=== PATIENT | female | born 1985 | race Caucasian/White ===

== ENCOUNTER → 2018-03-11 | Outpatient (REF) | payer OTHER, MEDICAID ==
[2018-03-11 19:58] LABS: ALBUMIN/GLOBULIN RATIO 0.88 (1.00-1.93); ALKALINE PHOSPHATASE 46 U/L (45-117); ALT/SGPT 21 U/L (12-78); ANION GAP 10 MEQ/L (8-16); AST/SGOT 15 U/L (7-37); BILIRUBIN,TOTAL 0.3 MG/DL (0.2-1.0); BLOOD UREA NITROGEN 7 MG/DL (7-18); CALCIUM LEVEL 8.4 MG/DL (8.5-10.1); CARBON DIOXIDE LEVEL 22 MEQ/L (21-32); CHLORIDE LEVEL 109 MEQ/L (98-107); CREATININE FOR GFR 0.56 MG/DL (0.55-1.30); FREE T4 0.94 NG/DL (0.76-1.46); GLOMERULAR FILTRATION RATE > 60.0 (>60); GLUCOSE, FASTING 84 MG/DL (70-100); POTASSIUM SERUM 3.5 MEQ/L (3.5-5.1); SODIUM LEVEL 141 MEQ/L (136-145); THYROID STIMULATING HORMONE 0.935 uIU/ML (0.358-3.740); TOTAL PROTEIN 6.4 GM/DL (6.4-8.2)
[2018-03-11 19:59] LABS: ESTIMATED AVERAGE GLUCOSE 97 MG/DL (60-110); FOLLICLE STIMULATING HORMONE < 0.3 mIU/mL; LUTEINIZING HORMONE < 0.1 mIU/mL
[2018-03-11 20:28] LABS: PROGESTERONE 58.3 NG/ML
[2018-03-11 22:04] LABS: CHLAMYDIA DNA AMPLIFICATION NEGATIVE (NEGATIVE); GC DNA AMPLIFICATION NEGATIVE (NEGATIVE)
[2018-03-12 11:27] LABS: HCG, SERUM QUANTITATIVE 38774 MIU/ML
[2018-03-12 15:09] LABS: HIV 1&2 SCREEN CENTAUR NEGATIVE (NEGATIVE)
[2018-03-15 15:40] LABS: ESTROGENS TOTAL 6418 pg/mL (.)
== END ==
LOC: M LAB REF 18:39
DX: Z11.3 Encounter for screening for infections with a predominantly sexual mode of transmission (principal); N91.5 Oligomenorrhea, unspecified
CPT/HCPCS: 83001

== ENCOUNTER → 2018-03-25 | Outpatient (CLI) | payer OTHER ==
[2018-03-25 10:12] LABS: BASO % 0.1 % (0.0-1.0); EOS # 0.3 10^3/uL (0.0-0.50); EOS % 3.9 % (0.0-3.0); HEMATOCRIT 34.3 % (36.0-47.0); HEMOGLOBIN 11.7 g/dl (12.0-15.5); IMMATURE GRANULOCYTE % 0.9 % (0-3.0); LYMPH # 1.4 10^3/uL (1.5-4.5); LYMPH % 17.9 % (24.0-44.0); MEAN CORPUSCULAR HEMOGLOBIN 31.3 pg (27.0-33.0); MEAN CORPUSCULAR HGB CONC 34.1 g/dl (32.0-36.5); MEAN CORPUSCULAR VOLUME 91.7 fl (80.0-96.0); MONO # 0.4 10^3/uL (0.0-0.8); MONO % 5.2 % (0.0-5.0); NEUTROPHILS # 5.7 10^3/uL (1.8-7.7); PLATELET COUNT, AUTOMATED 213 10^3/uL (150-450); RED BLOOD COUNT 3.74 10^6/uL (4.00-5.40); RED CELL DISTRIBUTION WIDTH 12.7 % (11.5-14.5); WHITE BLOOD COUNT 7.9 10^3/uL (4.0-10.0)
[2018-03-25 16:24] LABS: CHLAMYDIA DNA AMPLIFICATION NEGATIVE (NEGATIVE); GC DNA AMPLIFICATION NEGATIVE (NEGATIVE)
[2018-03-26 11:48] LABS: RUBELLA IgG QUALITATIVE IMMUNE (IMMUNE)
[2018-03-26 12:17] LABS: HBsAg Prenatal NEGATIVE (NEGATIVE)
[2018-03-26 12:17] LABS: HEPATITIS C VIRUS ABY INDEX < 0.0 INDEX (<0.8)
[2018-03-26 12:18] LABS: HIV 1&2 SCREEN CENTAUR NEGATIVE (NEGATIVE)
== END ==
LOC: M SMT 08:22
DX: Z34.82 Encounter for supervision of other normal pregnancy, second trimester (principal); Z3A.21 21 weeks gestation of pregnancy
CPT/HCPCS: 86762

== ENCOUNTER → 2018-03-25 | Outpatient (CLI) | payer OTHER | LOC: M RAD 13:08 | DX: Z34.82 Encounter for supervision of other normal pregnancy, second trimester (principal); Z36.89 Encounter for other specified antenatal screening; Z3A.21 21 weeks gestation of pregnancy | CPT/HCPCS: 76811 ==

== ENCOUNTER → 2018-05-19 | Outpatient (CLI) | payer OTHER ==
[2018-05-19 14:01] LABS: BASO % 0.1 % (0.0-1.0); EOS # 0.3 10^3/uL (0.0-0.50); EOS % 4.6 % (0.0-3.0); HEMATOCRIT 35.2 % (36.0-47.0); HEMOGLOBIN 11.7 g/dl (12.0-15.5); IMMATURE GRANULOCYTE % 0.9 % (0-3.0); LYMPH # 1.5 10^3/uL (1.5-4.5); MEAN CORPUSCULAR HEMOGLOBIN 31.2 pg (27.0-33.0); MEAN CORPUSCULAR HGB CONC 33.2 g/dl (32.0-36.5); MEAN CORPUSCULAR VOLUME 93.9 fl (80.0-96.0); MONO # 0.5 10^3/uL (0.0-0.8); MONO % 6.9 % (0.0-5.0); NEUTROPHILS % 67.5 % (36.0-66.0); PLATELET COUNT, AUTOMATED 205 10^3/uL (150-450); RED BLOOD COUNT 3.75 10^6/uL (4.00-5.40); RED CELL DISTRIBUTION WIDTH 13.2 % (11.5-14.5); WHITE BLOOD COUNT 7.4 10^3/uL (4.0-10.0)
[2018-05-19 15:17] LABS: GLUCOSE CHALLENGE TEST 1 HOUR 99 MG/DL (LESS THAN 140)
== END ==
LOC: M SMT 09:36
DX: Z34.83 Encounter for supervision of other normal pregnancy, third trimester (principal)
CPT/HCPCS: 82950

== ENCOUNTER → 2018-07-06 | Outpatient (REF) | payer OTHER | LOC: M LAB REF 13:11 | DX: Z34.83 Encounter for supervision of other normal pregnancy, third trimester (principal); Z3A.00 Weeks of gestation of pregnancy not specified | CPT/HCPCS: 87081 ==

== ENCOUNTER 2018-08-02 23:14 | Inpatient (IN) | payer OTHER ==
[2018-08-02] MEDS: LR 1,000 ML IV (23:48)
[2018-08-03] MEDS ORDERED: OXYTOCIN DRIP 30 UNITS in APPROPRIATE DILUENT 1 EA IV
[2018-08-03] MEDS: LR 1,000 ML IV ×2 (00:07→09:58)
[2018-08-03 00:16] LABS: HEMATOCRIT 38.9 % (36.0-47.0); HEMOGLOBIN 13.3 g/dl (12.0-15.5); MEAN CORPUSCULAR HEMOGLOBIN 30.8 pg (27.0-33.0); MEAN CORPUSCULAR HGB CONC 34.2 g/dl (32.0-36.5); PLATELET COUNT, AUTOMATED 193 10^3/uL (150-450); RED BLOOD COUNT 4.32 10^6/uL (4.00-5.40)
[2018-08-03] MEDS ORDERED: FENTANYL 2MCG/ML ROPIVACAINE 0.2% IN 0.9% NACL 200ML IVBAG As Ordered (04:46)
[2018-08-03] MEDS ORDERED: LACTATED RINGER'S 1000 ML IV (05:00)
[2018-08-03] MEDS ORDERED: EPIDURAL COMMENT XX (05:00)
[2018-08-03] MEDS ORDERED: ePHEDrine SULFATE 25 MG/5 ML(5MG/ML) SYRINGE IV (05:00)
[2018-08-03] MEDS ORDERED: REFRIGERATOR IV KEYS XX (05:00)
[2018-08-03] MEDS ORDERED: NALOXONE INJ 0.4 MG/1 ML VIAL (J2310) IV (05:00)
[2018-08-03] MEDS ORDERED: ONDANSETRON 4MG/2ML VIAL (J2405) IV ×2 (05:00→14:30)
[2018-08-03] MEDS ORDERED: EPIDURAL/PCA KEYS XX (05:00)
[2018-08-03] MEDS: PRENATAL VITAMINS CHEWABLE TABLET PO (09:00)
[2018-08-03] MEDS: FENTANYL/ROPIVACAINE/NACL BAG 200 ML EPIDURAL (09:19)
[2018-08-03] MEDS: diphenhydrAMINE INJ 50MG/ML VIAL (J1200) IV (10:49)
[2018-08-03 14:18] LABS: CORD GAS ABE A -10.3; CORD GAS HCO3 A 22.1 MEQ/L; CORD GAS O2 SAT A 98.5 %; CORD GAS PCO2 A 76.7 mmHg; CORD GAS PH A 7.077 UNITS; CORD GAS PO2 A 106.5 mmHg; CORD GAS SBC A 16.7 MEQ/L; CORD GAS TCO2 A 24.4 MEQ/L
[2018-08-03] MEDS ORDERED: RHOGAM 300 MCG (1500 IU) INJ (J2790) IM (14:30)
[2018-08-03] MEDS ORDERED: METHYLERGONOVINE MALEATE 0.2 MG TAB PO (14:30)
[2018-08-03] MEDS ORDERED: MEASLES,MUMPS,RUBELLA VACCINE INJ (MMR-II) (90707) SC (14:30)
[2018-08-03 14:37] LABS: CORD GAS HCO3 V 20.9 MEQ/L; CORD GAS O2 SAT V 69.3 %; CORD GAS PCO2 V 50.2 mmHg; CORD GAS PH V 7.237 UNITS; CORD GAS PO2 V 32.6 mmHg; CORD GAS SBC V 18.2 MEQ/L; CORD GAS TCO2 V 22.4 MEQ/L
[2018-08-03] MEDS: IBUPROFEN 800 MG TAB PO (16:42)
[2018-08-03] MEDS: OXYTOCIN INJ 10 UNITS/ML VIAL (J2590) IV (18:20)
[2018-08-03] MEDS: OXYTOCIN DRIP 30 UNITS in APPROPRIATE DILUENT 1 EA IV (18:28)
[2018-08-03] MEDS: METHYLERGONOVINE MALEATE 0.2 MG/ML VIAL (J2210) IM (18:29)
[2018-08-03 18:33] LABS: HEMATOCRIT 31.9 % (36.0-47.0); MEAN CORPUSCULAR HEMOGLOBIN 30.5 pg (27.0-33.0); MEAN CORPUSCULAR HGB CONC 34.2 g/dl (32.0-36.5); MEAN CORPUSCULAR VOLUME 89.4 fl (80.0-96.0); PLATELET COUNT, AUTOMATED 124 10^3/uL (150-450); RED BLOOD COUNT 3.57 10^6/uL (4.00-5.40); WHITE BLOOD COUNT 10.9 10^3/uL (4.0-10.0)
[2018-08-03 18:44] LABS: HEMOGLOBIN 10.9 g/dl (12.0-15.5)
[2018-08-03] MEDS: METHYLERGONOVINE MALEATE 0.2 MG TAB PO (22:15)
[2018-08-04] MEDS: ACETAMINOPHEN 500 MG TAB PO ×3 (00:05→18:19)
[2018-08-04] MEDS: DIBUCAINE 1% OINTMENT 30GM TOP (00:06)
[2018-08-04] MEDS: METHYLERGONOVINE MALEATE 0.2 MG TAB PO ×3 (04:34→15:34)
[2018-08-04] MEDS: DOCUSATE SODIUM 100 MG CAP PO ×2 (05:07→17:33)
[2018-08-04] MEDS: IBUPROFEN 800 MG TAB PO ×3 (05:07→22:11)
[2018-08-04 07:09] LABS: HEMATOCRIT 28.8 % (36.0-47.0); HEMOGLOBIN 9.8 g/dl (12.0-15.5); MEAN CORPUSCULAR HEMOGLOBIN 30.4 pg (27.0-33.0); MEAN CORPUSCULAR VOLUME 89.4 fl (80.0-96.0); PLATELET COUNT, AUTOMATED 126 10^3/uL (150-450); RED BLOOD COUNT 3.22 10^6/uL (4.00-5.40); WHITE BLOOD COUNT 10.1 10^3/uL (4.0-10.0)
[2018-08-04] MEDS: PRENATAL VITAMINS CHEWABLE TABLET PO (09:57)
[2018-08-04] MEDS ORDERED: METHYLERGONOVINE MALEATE 0.2 MG TAB PO (22:00)
[2018-08-05] MEDS: ACETAMINOPHEN 500 MG TAB PO (05:34)
[2018-08-05] MEDS: IBUPROFEN 800 MG TAB PO (09:22)
[2018-08-05] MEDS: PRENATAL VITAMINS CHEWABLE TABLET PO (09:22)
[2018-08-05] MEDS: DOCUSATE SODIUM 100 MG CAP PO (09:22)
== END 2018-08-05 09:38 | disposition home or self-care (01) | DRG 560 ==
LOC: M LDO 23:14 → M LDI 23:47 → M OBS 08-03 16:11
PROVIDERS: Specialist
PROC: 10D07Z3 Extraction of Products of Conception, Low Forceps, Via Natural or Artificial Opening (ICD-10-PCS; principal; 2018-08-03)
PROC: 0HQ9XZZ Repair Perineum Skin, External Approach (ICD-10-PCS; 2018-08-03)
DX: O48.0 Post-term pregnancy (principal); O72.1 Other immediate postpartum hemorrhage; O64.0XX0 Obstructed labor due to incomplete rotation of fetal head, not applicable or unspecified; Z37.0 Single live birth; Z3A.40 40 weeks gestation of pregnancy; O76 Abnormality in fetal heart rate and rhythm complicating labor and delivery; O70.0 First degree perineal laceration during delivery

== ENCOUNTER → 2019-01-10 | Outpatient (CLI) | payer OTHER ==
[~2019-01-10] MED LIST: IBUP-1114 PO; MAPA500T2 PO; PRENTAB9 PO; ZOLO25TA PO
--- NOTE | 2019-01-10 09:25 | REP ---
Clinical: Pelvic and perineal pain . Technique: Transabdominal pelvic ultrasound followed by transvaginal examination for better evaluation of the endometrium and adnexa with color Doppler evaluation of the ovaries. Findings: Bladder is unremarkable and measures 3.7 x 3.4 x 6.8 cm . Normal anteverted uterus measures 7.6 x 3.6 x 5.2 cm . The endometrial complex measures 4.7 mm thickness. No discrete uterine or endometrial abnormalities are appreciated. Right ovary is not visualized on either transabdominal or transvaginal images. Left ovary is normal in appearance and vascularity measuring 2.3 x 1.9 x 1.9 cm; RI 0.66. No pelvic fluid or adnexal mass lesion Impression: 1. Right ovary not visualized. 2. Normal uterus and left ovary. Electronically Signed by Marcos Lamb MD 01/10/2019 09:16 A
== END ==
LOC: M RAD 08:11
PROVIDERS: ATTEND Advanced Practice Midwife
DX: R10.2 Pelvic and perineal pain (principal)

== ENCOUNTER → 2019-02-14 | Outpatient (REF) | payer OTHER ==
[2019-02-14 15:12] LABS: CHLAMYDIA DNA AMPLIFICATION NEGATIVE (NEGATIVE); GC DNA AMPLIFICATION NEGATIVE (NEGATIVE)
[2019-02-16 14:09] LABS: HPV HYBRID CAPTURE II Negative (Negative)
== END ==
LOC: M LAB REF 13:00
PROVIDERS: ATTEND Advanced Practice Midwife
DX: R10.2 Pelvic and perineal pain (principal)

== ENCOUNTER → 2019-03-04 | Outpatient (CLI) | payer OTHER ==
[2019-03-04 13:31] LABS: AMORPHOUS SEDIMENT SMALL (NEGATIVE); APPEARANCE, URINE CLOUDY (CLEAR); BACTERIA, URINE AUTO 1+ (NEGATIVE); BILIRUBIN, URINE AUTO NEGATIVE (NEGATIVE); BLOOD, URINE BLOOD 2+ (NEGATIVE); COLOR, URINE YELLOW (YELLOW); GLUCOSE, URINE (UA) AUTO NEGATIVE (NEGATIVE); KETONE, URINE AUTO NEGATIVE (NEGATIVE); LEUKOCYTE ESTERASE, URINE AUTO 3+ (NEGATIVE); NITRITE, URINE AUTO NEGATIVE (NEGATIVE); PROTEIN, URINE AUTO 2+ mg/dL (NEGATIVE); RBC, URINE AUTO 104 /HPF (0-3); SPECIFIC GRAVITY URINE AUTO 1.013 (1.002-1.035); SQUAMOUS EPITHELIAL CELL UR AU 0 /HPF (0-6); UROBILINOGEN, URINE AUTO 0.2 mg/dL (0.0-2.0); WBC, URINE AUTO TNTC /HPF (0-3)
[2019-03-04 13:32] LABS: BASO % 0.1 % (0.0-1.0); EOS # 0.6 10^3/uL (0.0-0.50); EOS % 8.1 % (0.0-3.0); HEMATOCRIT 42.9 % (36.0-47.0); HEMOGLOBIN 14.5 g/dl (12.0-15.5); LYMPH # 1.8 10^3/uL (1.5-4.5); LYMPH % 23.1 % (24.0-44.0); MEAN CORPUSCULAR HEMOGLOBIN 30.9 pg (27.0-33.0); MEAN CORPUSCULAR HGB CONC 33.8 g/dl (32.0-36.5); MEAN CORPUSCULAR VOLUME 91.5 fl (80.0-96.0); MONO # 0.4 10^3/uL (0.0-0.8); MONO % 5.2 % (0.0-5.0); NEUTROPHILS # 4.8 10^3/uL (1.8-7.7); NEUTROPHILS % 63.2 % (36.0-66.0); PLATELET COUNT, AUTOMATED 256 10^3/uL (150-450); RED BLOOD COUNT 4.69 10^6/uL (4.00-5.40); WHITE BLOOD COUNT 7.7 10^3/uL (4.0-10.0)
[2019-03-04 13:38] LABS: ALBUMIN 3.6 GM/DL (3.2-5.2); ALT/SGPT 17 U/L (12-78); BILIRUBIN,TOTAL 0.3 MG/DL (0.2-1.0); BLOOD UREA NITROGEN 10 MG/DL (7-18); CARBON DIOXIDE LEVEL 27 MEQ/L (21-32); CHLORIDE LEVEL 110 MEQ/L (98-107); CREATININE FOR GFR 0.92 MG/DL (0.55-1.30); GLOMERULAR FILTRATION RATE > 60.0 (>60); GLUCOSE, FASTING 83 MG/DL (70-100); POTASSIUM SERUM 4.2 MEQ/L (3.5-5.1); SODIUM LEVEL 142 MEQ/L (136-145); TOTAL PROTEIN 7.3 GM/DL (6.4-8.2)
== END ==
LOC: M SMT 09:30
PROVIDERS: ATTEND Physician Assistant
DX: R10.9 Unspecified abdominal pain (principal)

== ENCOUNTER → 2019-03-09 | Outpatient (REF) | payer OTHER | LOC: M LAB REF 17:04 | PROVIDERS: ATTEND Physician Assistant | DX: R39.0 Extravasation of urine (principal) ==

== ENCOUNTER → 2020-07-13 | Outpatient (CLI) | payer OTHER ==
--- NOTE | 2020-07-13 09:24 | REP ---
INDICATION: R10.2 PELVIC PAIN. COMPARISON: 01/10/2019. TECHNIQUE: Transabdominal and transvaginal scanning were performed. FINDINGS: Uterine dimensions are normal at 8.6 x 3.8 x 4.6 cm. Endometrial echo is 7 mm thick and centrally placed. No free fluid is seen in the cul-de-sac. The bladder measures 2.4 x 6.8 x 3.5 cm. A linear echogenic focus in the posterior lower uterine segment measuring 7 mm in length is unchanged since the prior exam and is felt to be of no clinical significance. It may represent a thin linear calcification. The right ovary has been surgically removed reportedly. The left ovary dimensions are normal as well at 4.1 x 3.1 x 3.0 cm. It's Doppler flow was normal with resistive index of 0.59. There is a simple anechoic cyst of the left ovary measuring 3.3 x 2.7 x 2.9 cm. IMPRESSION: Small simple cyst left ovary 3.3 cm. Reportedly the right ovary has been removed. No left ovarian torsion. No free fluid. <Electronically signed by Mauro Alfonso > 07/13/20 [id number]
== END ==
LOC: M WHC 06:31
PROVIDERS: ATTEND Advanced Practice Midwife
DX: R10.2 Pelvic and perineal pain (principal)

== ENCOUNTER → 2020-10-11 | Outpatient (CLI) | payer OTHER ==
[~2020-10-11] MED LIST changes: +CETI-24 PO; +LILL1TAB PO
== END ==
LOC: M LABSMTC 14:12
PROVIDERS: ATTEND Pediatrics
DX: Z20.822 Contact with and (suspected) exposure to COVID-19 (principal)
CPT/HCPCS: C9803; U0003

== ENCOUNTER → 2021-07-05 | Outpatient (CLI) | payer OTHER ==
--- NOTE | 2021-07-05 09:26 | REP ---
INDICATION: VIABILITY. COMPARISON: None. FINDINGS: 4, Para 3 LMP 04/11/2021 VLADIMIR(LMP) = 01/16/2022 Today's sono findings, mean gestational sac size of 40 mm = 9 weeks 5 days; pole 7 mm = 6 weeks 5 days. Number: 1 there is no movement demonstrated. Heart Rate: There are no heart tones. The gestational sac appears irregular and partially detached from the uterus. IMPRESSION: irregular gestational sac, absence of movement and heart tones, consistent with failure. Findings were relayed to the referring office by the generation technologist. <Electronically signed by Morgan Catalan > 07/05/21 [id number]
== END ==
LOC: M WHC 08:11
PROVIDERS: ATTEND Obstetrics & Gynecology
DX: O36.8 Maternal care for other specified fetal problems (principal); Z3A.00 Weeks of gestation of pregnancy not specified

== ENCOUNTER → 2021-07-17 | Outpatient (CLI) | payer OTHER ==
--- NOTE | 2021-07-17 13:08 | REP ---
INDICATION: DETERMINE VIABILITY OF . COMPARISON: None. TECHNIQUE: Transvesical and transvaginal imaging FINDINGS: The uterus measures 15.4 x 5.9 x 7.9 cm. Within the uterus there is an irregular septated anechoic structure which measures 7.3 x 4 x 5.3 cm. Within this large anechoic structure there is a an echogenic focus potentially representing a pole. Doppler of this shows no cardiac activity. The patient is status post right oophorectomy Left ovary measures 2.7 x 1.9 x 1.8 cm and is within normal limits. IMPRESSION: Abnormal cystic structure seen within the uterus and not representing a normal gestational sac. No definite pole is identified. Exact etiology uncertain. Close follow-up is recommended. <Electronically signed by Shorty Vinson > 07/17/21 [id number]
== END ==
LOC: M WHC 10:04
PROVIDERS: ATTEND Obstetrics & Gynecology
DX: O36.80X0 Pregnancy with inconclusive fetal viability, not applicable or unspecified (principal); Z90.721 Acquired absence of ovaries, unilateral

== ENCOUNTER 2021-07-25 13:35 | Day surgery (SDC) | payer OTHER ==
[~2021-07-25] VITALS: Ht 165.1 cm; Wt 111.6 kg
[2021-07-25] MEDS ORDERED: MISO200T56 (13:54)
[2021-07-25] MEDS ORDERED: KETOROLAC 30 MG/ML 1ML VIAL IV ONE (21:55)
[2021-07-25 23:14] LABS: BASO % 0.4 % (0.0-1.0); EOS # 0.4 10^3/uL (0.0-0.5); EOS % 4.8 % (0.0-3.0); HEMATOCRIT 44.9 % (36.0-47.0); HEMOGLOBIN 14.1 g/dl (12.0-15.5); LYMPH # 2.4 10^3/uL (1.5-5.0); LYMPH % 30.6 % (24.0-44.0); MEAN CORPUSCULAR HEMOGLOBIN 30.2 pg (27.0-33.0); MEAN CORPUSCULAR HGB CONC 31.4 g/dl (32.0-36.5); MEAN CORPUSCULAR VOLUME 96.1 fl (80.0-96.0); MONO # 0.6 10^3/uL (0.0-0.8); MONO % 7.7 % (2.0-8.0); NEUTROPHILS # 4.3 10^3/uL (1.5-8.5); NEUTROPHILS % 56.2 % (36.0-66.0); PLATELET COUNT, AUTOMATED 190 10^3/uL (150-450); RED BLOOD COUNT 4.67 10^6/uL (4.00-5.40); WHITE BLOOD COUNT 7.7 10^3/uL (4.0-10.0)
[2021-07-25] MEDS ORDERED: ONDA4TAB6 PO (23:34)
[2021-07-25] MEDS ORDERED: CETI-24 PO (23:34)
[2021-07-25] MEDS ORDERED: PROAAER10 INH (23:34)
[2021-07-25] MEDS ORDERED: FLON1SPR (23:34)
[2021-07-25] MEDS ORDERED: HOME MED LIST COMPLETE! XX SCH (23:35)
[2021-07-26 00:14] LABS: RSV AMPLIFICATION NEGATIVE (NEGATIVE)
[2021-07-26] MEDS ORDERED: fentaNYL 100 MCG/2 ML INJECTION As Ordered ONE (00:18)
[2021-07-26] MEDS ORDERED: MIDAZOLAM INJ 2MG/2ML VIAL (J2250 PER 1MG) As Ordered ONE (00:18)
[2021-07-26] MEDS ORDERED: LIDOCAINE 2% 100MG/5ML SDV (FOR ANES.) As Ordered ONE (00:22)
[2021-07-26] MEDS ORDERED: propofoL 200 MG/20 ML VIAL As Ordered ONE (00:22)
[2021-07-26] MEDS ORDERED: SUCCINYLCHOLINE 100 MG/5 ML SYRINGE (J0330) As Ordered ONE (00:23)
[2021-07-26] MEDS ORDERED: dexameTHASONE 4 MG/ML 1ML VIAL (J1100 PER 1MG) As Ordered ONE (00:23)
[2021-07-26] MEDS ORDERED: ACETAMINOPHEN 1000MG 100ML IV BTL (OFIRMEV) (J0131 PER 10MG) As Ordered ONE (00:58)
[2021-07-26] MEDS ORDERED: METHYLERGONOVINE MALEATE 0.2 MG/ML VIAL (J2210) As Ordered ONE (01:04)
[2021-07-26] MEDS ORDERED: KETOROLAC 60MG 2ML VIAL As Ordered ONE (01:07)
[2021-07-26] MEDS ORDERED: ONDANSETRON 4MG/2ML VIAL As Ordered ONE (01:07)
[2021-07-26] MEDS ORDERED: METOCLOPRAMIDE INJ 10MG/2ML VIAL (J2765 PER 1) As Ordered ONE (01:07)
[2021-07-26] MEDS ORDERED: ONDANSETRON 4MG/2ML VIAL IV PRN (01:25)
[2021-07-26] MEDS ORDERED: LR 1,000 ML IV SCH ×2 (01:25)
[2021-07-26] MEDS ORDERED: fentaNYL 100 MCG/2 ML INJECTION IV PRN (01:25)
[2021-07-26] MEDS ORDERED: oxyCODONE 5MG TAB PO PRN (01:25)
[2021-07-26] MEDS ORDERED: HYDROMORPHONE HCL 0.5 MG/ 0.5 ML SYRINGE (J1170 PER 1) IV PRN (01:25)
[2021-07-26 02:00] VITALS: BP 114/69
[2021-07-26 02:30] VITALS: BP 120/57
[2021-07-26 03:00] VITALS: BP 118/65
[2021-07-26 04:00] VITALS: BP 120/66
[2021-07-26 05:00] VITALS: BP 120/58
[2021-07-26] MEDS ORDERED: IBUPROFEN 800 MG TAB PO ONE (07:30)
== END 2021-07-26 09:35 | disposition home or self-care (01) ==
LOC: M ED 13:35 → M SDC 13:36 → M OBS 07-26 02:07 → M SDC 07-26 09:35
PROVIDERS: ATTEND Specialist
DX: O03.4 Incomplete spontaneous abortion without complication (principal); Z79.899 Other long term (current) drug therapy
CPT/HCPCS: 59812; 76801; 80047; 84702; 85025; 86850; 86900; 86901; 87631; 88305; 99283; J0131; J0330; J1100; J1885; J2210; J2250; J2405; J2765; J3010

== ENCOUNTER → 2021-08-27 | Outpatient (CLI) | payer OTHER ==
[~2021-08-27] MED LIST changes: +FLON1SPR; +MISO200T56; +ONDA4TAB6 PO; +PROAAER10 INH
[2021-08-27 13:47] LABS: APPEARANCE, URINE CLOUDY (CLEAR); BACTERIA, URINE AUTO NEGATIVE (NEGATIVE); BILIRUBIN, URINE AUTO NEGATIVE (NEGATIVE); BLOOD, URINE BLOOD NEGATIVE (NEGATIVE); COLOR, URINE YELLOW (YELLOW); GLUCOSE, URINE (UA) AUTO NEGATIVE (NEGATIVE); KETONE, URINE AUTO NEGATIVE (NEGATIVE); LEUKOCYTE ESTERASE, URINE AUTO 1+ (NEGATIVE); MUCUS, URINE SMALL (NEGATIVE); NITRITE, URINE AUTO NEGATIVE (NEGATIVE); PROTEIN, URINE AUTO NEGATIVE (NEGATIVE); RBC, URINE AUTO 2 /HPF (0-3); SPECIFIC GRAVITY URINE AUTO 1.019 (1.002-1.035); SQUAMOUS EPITHELIAL CELL UR AU 0 /HPF (0-6); UROBILINOGEN, URINE AUTO 0.2 mg/dL (0.0-2.0); WBC, URINE AUTO 45 /HPF (0-3)
== END ==
LOC: M PLALAB 11:00
PROVIDERS: ATTEND Advanced Practice Midwife
DX: Z30.42 Encounter for surveillance of injectable contraceptive (principal); R39.15 Urgency of urination

== ENCOUNTER → 2021-08-29 | Outpatient (CLI) | payer OTHER | LOC: M PLALAB 15:12 | PROVIDERS: ATTEND Advanced Practice Midwife | DX: Z30.42 Encounter for surveillance of injectable contraceptive (principal) ==

== ENCOUNTER → 2021-09-05 | Outpatient (CLI) | payer OTHER ==
--- NOTE | 2021-09-06 04:37 | REPVR ---
PROCEDURE INFORMATION: Exam: MR Lumbar Spine Without Contrast Exam date and time: 09/05/2021 8:45 AM Age: 35 years old Clinical indication: Low back pain; Additional info: Loose stool, stress incontinence, low back pain TECHNIQUE: Imaging protocol: Multiplanar magnetic resonance images of the lumbar spine without intravenous contrast. COMPARISON: 1ST [facility] US 07/25/2021 10:39 PM FINDINGS: Vertebrae: The lumbar vertebral bodies are normal in height, without abnormal subluxation or acute marrow edema. Spinal cord: The distal end of the conus medullaris ends at L1-L2, normal in position. L1-L2: There is no significant narrowing of the thecal sac or neural foramina. L2-L3: There is no significant narrowing of the thecal sac or neural foramina. L3-L4: Bilateral facet arthropathy with hypertrophy of the ligamentum flavum. There is no significant narrowing of the thecal sac or neural foramina. L4-L5: Bilateral facet arthropathy with hypertrophy of the ligamentum flavum. There is no significant narrowing of the thecal sac or neural foramina. L5-S1: Bilateral facet arthropathy. There is a mild degenerative decrease in the T2 signal intensity of the disc. A small broad-based disc bulge is visualized, without significant spinal canal stenosis. No significant neural foraminal narrowing bilaterally. An annular tear is identified at the posterior aspect of the disc. Soft tissues: Mild soft tissue swelling posteriorly. Reproductive: Within the right side of the uterus, there is a 2.7 cm hypointense mass/fibroid. This is incompletely evaluated. Within the right ovary, there is a 1.4 cm T2 hyperintense cyst or cystic lesion partially visualized. Additional small follicles are seen within the right ovary. IMPRESSION: 1. Degenerative changes are visualized involving the lumbar spine, as described above. No significant spinal canal stenosis or neural foraminal narrowing at any lumbar level. 2. Within the right side of the uterus, there is a 2.7 cm hypointense mass/fibroid. This is incompletely evaluated. Within the right ovary, there is a 1.4 cm T2 hyperintense cyst or cystic lesion partially visualized. Follow-up ultrasonography recommended. 3. Additional findings described above. Electronically signed by: Morgan Lovell On 09/06/2021 04:36:50 AM
== END ==
LOC: M PLAIMG 08:00
PROVIDERS: ATTEND Physician Assistant
DX: R19.5 Other fecal abnormalities (principal); M51.27 Other intervertebral disc displacement, lumbosacral region; M79.89 Other specified soft tissue disorders; M51.36 Other intervertebral disc degeneration, lumbar region; D25.9 Leiomyoma of uterus, unspecified; N83.201 Unspecified ovarian cyst, right side

== ENCOUNTER → 2021-10-04 | Outpatient (CLI) | payer OTHER | LOC: M RAD 16:31 | PROVIDERS: ATTEND Physician Assistant | DX: D25.0 Submucous leiomyoma of uterus (principal); Z90.721 Acquired absence of ovaries, unilateral ==

== ENCOUNTER → 2021-10-23 | Outpatient (REF) | LOC: M LAB 10:26 | PROVIDERS: ATTEND Nurse Practitioner Adult Health | DX: Z00.00 Encounter for general adult medical examination without abnormal findings (principal) ==

== ENCOUNTER → 2022-03-06 | Outpatient (CLI) | payer OTHER | LOC: M WUC 09:45 | PROVIDERS: ATTEND Physician Assistant | DX: M79.671 Pain in right foot (principal) ==

== ENCOUNTER → 2022-05-29 | Outpatient (REF) | LOC: M LABSMTC 11:45 | PROVIDERS: ATTEND Family Medicine | DX: Z20.822 Contact with and (suspected) exposure to COVID-19 (principal) ==

== ENCOUNTER → 2023-11-03 | Outpatient (CLI) | payer OTHER ==
[~2023-11-03] MED LIST changes: -MISO200T56; +MISO200T83
[2023-11-03 15:46] LABS: BASO % 0.1 % (0.0-1.0); EOS # 0.2 10^3/uL (0.0-0.5); EOS % 1.8 % (0.0-3.0); HEMATOCRIT 43.3 % (36.0-47.0); HEMOGLOBIN 14.5 g/dl (12.0-15.5); LYMPH # 1.7 10^3/uL (1.5-5.0); LYMPH % 19.2 % (24.0-44.0); MEAN CORPUSCULAR HEMOGLOBIN 30.5 pg (27.0-33.0); MEAN CORPUSCULAR HGB CONC 33.5 g/dl (32.0-36.5); MEAN CORPUSCULAR VOLUME 91.2 fl (80.0-96.0); MONO # 0.5 10^3/uL (0.0-0.8); MONO % 5.6 % (2.0-8.0); NEUTROPHILS # 6.4 10^3/uL (1.5-8.5); PLATELET COUNT, AUTOMATED 212 10^3/uL (150-450); RED BLOOD COUNT 4.75 10^6/uL (4.00-5.40); WHITE BLOOD COUNT 8.7 10^3/uL (4.0-10.0)
[2023-11-03 15:50] LABS: IRON (FE) 61 UG/DL (50-170); PERCENT SATURATION 20.5 % (13.2-45.0); TOTAL IRON BINDING CAPACITY 297 UG/DL (250-425)
[2023-11-03 15:51] LABS: ALBUMIN 3.8 G/DL (3.2-5.2); ALKALINE PHOSPHATASE 59 U/L (46-116); ALT/SGPT 16 U/L (7.0-40); AST/SGOT 9 U/L (<34); BILIRUBIN,TOTAL 0.3 MG/DL (0.3-1.2); BLOOD UREA NITROGEN 11 MG/DL (9-23); CALCIUM LEVEL 8.9 MG/DL (8.5-10.1); CARBON DIOXIDE LEVEL 27 MMOL/L (20-31); CHLORIDE LEVEL 110 MMOL/L (98-107); CREATININE FOR GFR 0.85 MG/DL (0.55-1.30); GLOMERULAR FILTRATION RATE > 60.0 (>58); GLUCOSE, FASTING 88 MG/DL (60-100); POTASSIUM SERUM 4.2 MMOL/L (3.5-5.1); SODIUM LEVEL 139 MMOL/L (136-145); TOTAL PROTEIN 7.2 G/DL (5.7-8.2)
[2023-11-03 15:55] LABS: FREE T4 1.05 NG/DL (0.89-1.76)
[2023-11-03 15:56] LABS: FERRITIN 117.6 NG/ML (7.3-270.7); PROLACTIN 2.86 NG/ML; THYROID STIMULATING HORMONE 1.108 uIU/ML (0.55-4.78)
[2023-11-03 15:57] LABS: ESTRADIOL 116.2 PG/ML
[2023-11-03 15:58] LABS: HEMOGLOBIN A1c 5.7 % (4.0-6.0)
== END ==
LOC: M PLALAB 13:28
PROVIDERS: ATTEND Nurse Practitioner Family
DX: N91.1 Secondary amenorrhea (principal); R53.83 Other fatigue

== ENCOUNTER → 2023-11-03 | Outpatient (CLI) | payer MEDICAID, OTHER, SELFPAY | LOC: M WHC 10:49 | PROVIDERS: ATTEND Nurse Practitioner Family | DX: Z12.31 Encounter for screening mammogram for malignant neoplasm of breast (principal); R92.323 Mammographic fibroglandular density, bilateral breasts ==

== ENCOUNTER 2023-11-19 04:49 | Emergency (ER) | payer OTHER ==
[~2023-11-19] VITALS: Ht 165.1 cm; Wt 106.7 kg
[~2023-11-19 04:49] MED LIST changes: +EMTRICITABINE/TENOFOVIR 200MG/300MG TABLET PO SCH; +RALTEGRAVIR 400 MG TAB (ISENTRESS) PO SCH
[2023-11-19] MEDS ORDERED: EXPOSURE KIT-ADULT 7 DAY SUPPLY PO ONE (07:55)
[2023-11-19 08:31] LABS: BASO % 0.1 % (0.0-1.0); EOS # 0.3 10^3/uL (0.0-0.5); EOS % 4.4 % (0.0-3.0); HEMATOCRIT 42.1 % (36.0-47.0); LYMPH # 2.1 10^3/uL (1.5-5.0); LYMPH % 30.7 % (24.0-44.0); MEAN CORPUSCULAR HEMOGLOBIN 30.4 pg (27.0-33.0); MEAN CORPUSCULAR HGB CONC 33.3 g/dl (32.0-36.5); MEAN CORPUSCULAR VOLUME 91.5 fl (80.0-96.0); MONO # 0.5 10^3/uL (0.0-0.8); MONO % 6.8 % (2.0-8.0); NEUTROPHILS # 3.9 10^3/uL (1.5-8.5); NEUTROPHILS % 57.7 % (36.0-66.0); PLATELET COUNT, AUTOMATED 262 10^3/uL (150-450); WHITE BLOOD COUNT 6.8 10^3/uL (4.0-10.0)
[2023-11-19 09:03] LABS: ALBUMIN 3.9 G/DL (3.2-5.2); ALKALINE PHOSPHATASE 61 U/L (46-116); ALT/SGPT 21 U/L (7.0-40); AST/SGOT 14 U/L (<34); BILIRUBIN,TOTAL 0.4 MG/DL (0.3-1.2); BLOOD UREA NITROGEN 13 MG/DL (9-23); CALCIUM LEVEL 9.3 MG/DL (8.5-10.1); CARBON DIOXIDE LEVEL 27 MMOL/L (20-31); CHLORIDE LEVEL 106 MMOL/L (98-107); CREATININE FOR GFR 0.75 MG/DL (0.55-1.30); GLOMERULAR FILTRATION RATE > 60.0 (>58); GLUCOSE, FASTING 85 MG/DL (60-100); POTASSIUM SERUM 4.4 MMOL/L (3.5-5.1); SODIUM LEVEL 140 MMOL/L (136-145); TOTAL PROTEIN 7.2 G/DL (5.7-8.2)
[2023-11-19 09:05] LABS: HEPATITIS B SURFACE ANTIBODY NEGATIVE (POSITIVE)
[2023-11-19 09:06] LABS: HCG, SERUM QUALITATIVE NEGATIVE (NEGATIVE)
[2023-11-19] MEDS ORDERED: ONDA4TAB6 PO (09:20)
[2023-11-19] MEDS ORDERED: RALT40TA PO (09:20)
[2023-11-19] MEDS ORDERED: EMTR1TAB16 PO (09:20)
[2023-11-19] MEDS: EMTRICITABINE/TENOFOVIR 200MG/300MG TABLET PO ONE (09:23)
[2023-11-19] MEDS: RALTEGRAVIR 400 MG TAB (ISENTRESS) PO ONE (09:23)
[2023-11-19 09:30] VITALS: BP 123/84; TEMP 96.9; O2SAT 98
[2023-11-19 09:30] LABS: HIV 1&2 SCREEN NEGATIVE (NEGATIVE)
[2023-11-19 09:39] LABS: HEPATITIS C VIRUS ABY INDEX 0.05 INDEX (<0.8)
== END 2023-11-19 09:31 | disposition home or self-care (01) ==
LOC: M ED 04:49
DX: Z77.21 Contact with and (suspected) exposure to potentially hazardous body fluids (principal); Y04.8XXA Assault by other bodily force, initial encounter; Y92.9 Unspecified place or not applicable; Y93.9 Activity, unspecified; Y99.0 Civilian activity done for income or pay

== ENCOUNTER → 2024-03-07 | Outpatient (REF) | payer OTHER ==
[~2024-03-07] MED LIST changes: +EMTR1TAB16 PO; -EMTRICITABINE/TENOFOVIR 200MG/300MG TABLET PO SCH; +ONDA-282 PO; -ONDA4TAB6 PO; +RALT40TA PO; -RALTEGRAVIR 400 MG TAB (ISENTRESS) PO SCH
[2024-03-07 20:08] LABS: THYROID STIMULATING HORMONE 1.483 uIU/ML (0.55-4.78)
[2024-03-07 20:11] LABS: CHOLESTEROL LEVEL 214 MG/DL (<200); CHOLESTEROL RISK RATIO 4.15 (<5); HDL CHOLESTEROL 51.5 MG/DL (>40); LDL CHOLESTEROL 140.7 MG/DL (<100); NON-HDL-C 162.5 MG/DL; TRIGLYCERIDES LEVEL 109 MG/DL (<150)
[2024-03-07 20:19] LABS: HCG, SERUM QUALITATIVE NEGATIVE (NEGATIVE)
[2024-03-07 21:05] LABS: HEMOGLOBIN A1c 5.5 % (4.0-6.0)
== END ==
LOC: M LAB REF 16:29
PROVIDERS: ATTEND Nurse Practitioner Family
DX: E66.3 Overweight (principal); E55.9 Vitamin D deficiency, unspecified; N92.6 Irregular menstruation, unspecified

== ENCOUNTER 2024-06-02 09:56 | Emergency (ER) | payer OTHER ==
[~2024-06-02] VITALS: Ht 165.1 cm; Wt 110.5 kg
[2024-06-02] MEDS ORDERED: IBUP-1022 PO (12:23)
[2024-06-02] MEDS ORDERED: AMOX500C PO (12:23)
[2024-06-02 12:28] VITALS: BP 129/71; TEMP 98.1; O2SAT 100
== END 2024-06-02 12:29 | disposition home or self-care (01) ==
LOC: M ED 09:56
DX: H66.91 Otitis media, unspecified, right ear (principal); Z79.2 Long term (current) use of antibiotics; Z79.1 Long term (current) use of non-steroidal anti-inflammatories (NSAID)

== ENCOUNTER → 2025-05-24 | Outpatient (CLI) | payer OTHER ==
[~2025-05-24] MED LIST changes: +AMOX500C PO; +IBUP600T42 PO
[2025-05-24 12:24] LABS: APPEARANCE, URINE CLEAR (CLEAR); BACTERIA, URINE AUTO 1+ (NEGATIVE); BILIRUBIN, URINE AUTO NEGATIVE (NEGATIVE); BLOOD, URINE BLOOD NEGATIVE (NEGATIVE); GLUCOSE, URINE (UA) AUTO NEGATIVE (NEGATIVE); KETONE, URINE AUTO NEGATIVE (NEGATIVE); LEUKOCYTE ESTERASE, URINE AUTO NEGATIVE (NEGATIVE); MUCUS, URINE SMALL (NEGATIVE); NITRITE, URINE AUTO NEGATIVE (NEGATIVE); PROTEIN, URINE AUTO NEGATIVE (NEGATIVE); RBC, URINE AUTO 0 /HPF (0-3); SPECIFIC GRAVITY URINE AUTO 1.011 (1.002-1.035); SQUAMOUS EPITHELIAL CELL UR AU 3 /HPF (0-6); UROBILINOGEN, URINE AUTO 0.2 mg/dL (0.0-2.0); WBC, URINE AUTO 0 /HPF (0-3)
[2025-05-24 12:51] LABS: BASO # 0.0 10^3/uL (0.0-0.2); BASO % 0.3 % (0.0-1.0); EOS # 0.4 10^3/uL (0.0-0.5); EOS % 5.0 % (0.0-3.0); LYMPH # 2.7 10^3/uL (1.5-5.0); LYMPH % 36.9 % (24.0-44.0); MONO # 0.6 10^3/uL (0.0-0.8); MONO % 8.5 % (2.0-8.0); NEUTROPHILS # 3.5 10^3/uL (1.5-8.5); NEUTROPHILS % 49.2 % (36.0-66.0); PLATELET COUNT, AUTOMATED 241 10^3/uL (150-450)
[2025-05-24 13:16] LABS: CALCIUM LEVEL 8.8 MG/DL (8.5-10.1); CARBON DIOXIDE LEVEL 30 MMOL/L (20-31); CHLORIDE LEVEL 104 MMOL/L (98-107); CHOLESTEROL LEVEL 174 MG/DL (<200); CHOLESTEROL RISK RATIO 3.47 (<5); CREATININE FOR GFR 0.86 MG/DL (0.55-1.30); GLOMERULAR FILTRATION RATE 87.0 (>58); LDL CHOLESTEROL 100.1 MG/DL (<100); NON-HDL-C 123.9 MG/DL; POTASSIUM SERUM 4.1 MMOL/L (3.5-5.1); SODIUM LEVEL 140 MMOL/L (136-145); TRIGLYCERIDES LEVEL 119 MG/DL (<150)
[2025-05-24 13:20] LABS: HCG, SERUM QUALITATIVE NEGATIVE (NEGATIVE)
[2025-05-24 13:21] LABS: LUTEINIZING HORMONE 8.1 mIU/ML
[2025-05-24 13:22] LABS: PROLACTIN 2.20 NG/ML; TOTAL 25(OH) VITAMIN D 24.7 NG/ML (20.0-100.0)
[2025-05-24 13:24] LABS: ESTIMATED AVERAGE GLUCOSE 117.0 MG/DL (60-110)
== END ==
LOC: M LAB 11:04
PROVIDERS: ATTEND Nurse Practitioner Family
DX: N91.2 Amenorrhea, unspecified (principal); E55.9 Vitamin D deficiency, unspecified; R10.9 Unspecified abdominal pain; N76.0 Acute vaginitis; R23.2 Flushing; E66.812 Obesity, class 2

== ENCOUNTER → 2025-06-27 | Outpatient (CLI) | payer OTHER | LOC: M WHC 09:42 | PROVIDERS: ATTEND Nurse Practitioner Family | DX: D25.9 Leiomyoma of uterus, unspecified (principal) ==

== ENCOUNTER → 2025-06-29 | Outpatient (CLI) | payer OTHER ==
[2025-06-29 15:46] LABS: BASO # 0.0 10^3/uL (0.0-0.2); BASO % 0.2 % (0.0-1.0); EOS # 0.3 10^3/uL (0.0-0.5); EOS % 3.9 % (0.0-3.0); LYMPH # 2.5 10^3/uL (1.5-5.0); LYMPH % 29.9 % (24.0-44.0); MONO # 0.5 10^3/uL (0.0-0.8); MONO % 6.1 % (2.0-8.0); NEUTROPHILS # 4.9 10^3/uL (1.5-8.5); NEUTROPHILS % 59.7 % (36.0-66.0); PLATELET COUNT, AUTOMATED 305 10^3/uL (150-450)
[2025-06-29 16:00] LABS: ESTIMATED AVERAGE GLUCOSE 114.0 MG/DL (60-110)
[2025-06-29 16:12] LABS: C REACTIVE PROTEIN QUANTITATIV 0.56 MG/DL (<1.0); COMPLEMENT C4 43.0 MG/DL (12-36); LUTEINIZING HORMONE 3.1 mIU/ML; PROLACTIN 2.90 NG/ML; RHEUMATOID FACTOR QUANT < 3.5 IU/ML (<14)
[2025-06-29 16:13] LABS: ESTRADIOL 81.2 PG/ML; PROGESTERONE 7.27 NG/ML
[2025-07-01 08:38] LABS: DEHYDROEPIANDROSTERONE SULFATE 177 mcg/dL (15-205)
[2025-07-01 14:12] LABS: HPV APTIMA Not Detected (Not Detected)
[2025-07-09 00:17] LABS: TESTOSTERONE FREE (DIRECT) 1.7 pg/mL (0.1-6.4); TESTOSTERONE TOTAL FOR T&D 14 ng/dL (2-45)
[2025-07-11 21:13] LABS: 17 HYDROXY PROGESTERONE 105 ng/dL
== END ==
LOC: M PLALAB 12:40
PROVIDERS: ATTEND Nurse Practitioner Family
DX: N91.1 Secondary amenorrhea (principal); M25.59 Pain in other specified joint; Z12.4 Encounter for screening for malignant neoplasm of cervix; R53.83 Other fatigue

== ENCOUNTER → 2025-07-11 | Outpatient (CLI) | payer OTHER ==
[2025-07-11 11:13] LABS: BASO # 0.0 10^3/uL (0.0-0.2); BASO % 0.4 % (0.0-1.0); EOS # 0.4 10^3/uL (0.0-0.5); EOS % 7.4 % (0.0-3.0); LYMPH # 1.9 10^3/uL (1.5-5.0); LYMPH % 33.5 % (24.0-44.0); MONO # 0.3 10^3/uL (0.0-0.8); MONO % 5.9 % (2.0-8.0); NEUTROPHILS # 2.9 10^3/uL (1.5-8.5); NEUTROPHILS % 52.6 % (36.0-66.0); PLATELET COUNT, AUTOMATED 232 10^3/uL (150-450)
[2025-07-11 11:49] LABS: ALT/SGPT 16 U/L (7.0-40); AST/SGOT 18 U/L (<34); CALCIUM LEVEL 8.9 MG/DL (8.5-10.1); CARBON DIOXIDE LEVEL 28 MMOL/L (20-31); CHLORIDE LEVEL 106 MMOL/L (98-107); CREATININE FOR GFR 0.90 MG/DL (0.55-1.30); GLOMERULAR FILTRATION RATE 82.4 (>58); POTASSIUM SERUM 4.3 MMOL/L (3.5-5.1); SODIUM LEVEL 142 MMOL/L (136-145)
[2025-07-11 11:50] LABS: FREE T4 1.23 NG/DL (0.89-1.76); VITAMIN B12 LEVEL 431 PG/ML (211-911)
[2025-07-11 12:13] LABS: RHEUMATOID FACTOR QUANT < 3.5 IU/ML (<14)
[2025-07-13 22:13] LABS: VITAMIN E(ALPHA TOCOPHEROL) 11.7 mg/L (5.7-19.9); VITAMIN E(GAMMA TOCOPHEROL) 1.1 mg/L (<=4.3)
== END ==
LOC: M LAB 09:35
PROVIDERS: ATTEND Psychiatry & Neurology Neurology
DX: E07.9 Disorder of thyroid, unspecified (principal); E53.8 Deficiency of other specified B group vitamins; R41.3 Other amnesia; Z11.3 Encounter for screening for infections with a predominantly sexual mode of transmission

== ENCOUNTER → 2025-07-14 | Outpatient (REF) | payer OTHER | LOC: M PLALAB 12:15 | PROVIDERS: ATTEND Student in an Organized Health Care Education/Training Program | DX: N91.1 Secondary amenorrhea (principal) ==

== ENCOUNTER 2025-08-01 11:41 | Emergency (ER) | payer OTHER ==
[~2025-08-01] VITALS: Ht 167.6 cm; Wt 94.5 kg
[2025-08-01 14:50] VITALS: BP 135/60; TEMP 99.1; O2SAT 99
== END 2025-08-01 14:56 | disposition home or self-care (01) ==
LOC: M ED 11:41
DX: B34.8 Other viral infections of unspecified site (principal)